=== PATIENT | male | born 1995 | race Caucasian/White ===

== ENCOUNTER 2018-06-18 13:56 | Inpatient (IN) | payer OTHER ==
[2018-06-18 14:14] VITALS: BMI 20.2
--- NOTE | 2018-06-18 15:31 | HP ---
COWS - Scale Resting Pulse: 4= CT > 121 Sweatin=Flushed/Facial Moisture Restless Observation: 1= Difficult to Sit Still Pupil Size: 0= Normal to Room Light Bone or Joint Aches: 2= Severe Diffuse Aches Runny Nose/ Eye Tearin= Runny Nose/Eyes GI Upset > 30mins: 2= Nausea/Diarrhea Tremor Observation: 2= Slight Tremor Visible Yawning Observation: 2= >3x During Session Anxiety or Irritability: 2=Irritable/Anxious Goose Flesh Skin: 3=Piloerection COWS Score: 22 CIWA Score - Admission Criteria OASAS Guidelines: Admission for Medically Managed Detox: Requires at least one of the followin. CIWA greater than 12 2. Seizures within the past 24 hours 3. Delirium tremens within the past 24 hours 4. Hallucinations within the past 24 hours 5. Acute intervention needed for co occurring medical disorder 6. Acute intervention needed for co occurring psychiatric disorder 7. Severe withdrawal that cannot be handled at a lower level of care (continued vomiting, continued diarrhea, abnormal vital signs) requiring intravenous medication and/or fluids 8. Admission ROS BHS - HPI Chief Complaint: I need to go to detox and get the help I need. I was going through withdrawal and wound up at [facility] for treatment. I am here now for detox treatment. Allergies/Adverse Reactions: Allergies Allergy/AdvReac Type Severity Reaction Status Date / Time haloperidol [From Haldol] Allergy Verified 06/18/18 15:17 History of Present Illness: Pt is a 22yr old male with a history of heroin dependence seeking detox for treatment. Pt also states he has a h/o dystonia for several years after taking too many sedative pills from his [facility] medicine cabinet in the past. The only thing that helps his dystonia when it flares up is benadryl and cogentin. Exam Limitations: No Limitations - Ebola screening Have you traveled outside of the country in the last 21 days: No Have you had contact with anyone from an Ebola affected area: No Have you been sick,other than usual withdrawal symptoms: No Do you have a fever: No - Review of Systems Constitutional: Chills, Diaphoresis, Loss of Appetite, Night Sweats, Changes in sleep EENT: reports: Tearing, Nose Congestion Respiratory: reports: No Symptoms reported Cardiac: reports: No Symptoms Reported GI: reports: Diarrhea, Poor Appetite, Poor Fluid Intake, Indigestion : reports: No Symptoms Reported Musculoskeletal: reports: Back Pain Integumentary: reports: Flushing, Sweating Neuro: reports: Tingling, Tremors Endocrine: reports: Excessive Sweating, Flushing, Intolerance to Cold, Intolerance to Heat Hematology: reports: No Symptoms Reported Psychiatric: reports: Judgement Intact, Mood/Affect Appropiate, Orientated x3, Agitated, Anxious Other Systems: Reviewed and Negative Patient History - Patient Medical History Hx Anemia: No Hx Asthma: No Hx Chronic Obstructive Pulmonary Disease (COPD): No Hx Cancer: No Hx Cardiac Disorders: No Hx Congestive Heart Failure: No Hx Hypertension: No Hx Hypercholesterolemia: No Hx Pacemaker: No HX Cerebrovascular Accident: No Hx Seizures: No Hx Dementia: No Hx Diabetes: No Hx Gastrointestinal Disorders: No Hx Liver Disease: No Hx Genitourinary Disorders: No Hx Sexually Transmitted Disorders: No Hx Renal Disease (ESRD): No Hx Thyroid Disease: No Hx Human Immunodeficiency Virus (HIV): No (negative) Hx Hepatitis C: No (negative) Hx Depression: No Hx Suicide Attempt: No Hx Bipolar Disorder: No Hx Schizophrenia: No Other Medical History: dytonia and cogentin helps with flare up - Patient Surgical History Past Surgical History: No - PPD History Previous Implant?: Yes Documented Results: Negative w/o proof Implanted On Prior [facility] Admission?: No PPD to be Administered?: Yes - Reproductive History Patient is a Female of Child Bearing Age (11 -55 yrs old): No - Smoking Cessation Smoking history: Current every day smoker Have you smoked in the past 12 months: Yes Aproximately how many cigarettes per day: 20 Hx Chewing Tobacco Use: Yes Initiated information on smoking cessation: Yes 'Breaking Loose' booklet given: 06/18/18 - Substance & Tx. History Hx Alcohol Use: No Hx Substance Use: Yes Substance Use Type: Heroin Hx Substance Use Treatment: Yes (last detox [facility] a year ago incomplete) - Substances Abused Heroin Route: Injection Frequency: Daily Amount used: 10-15 BAGS Age of first use: 17 Date of Last Use: 06/16/18 Family Disease History - Family Disease History Family History: Denies Admission Physical Exam BHS - Vital Signs Vital Signs: Vital Signs - 24 hr 06/18/18 14:12 Temperature 97.9 F Pulse Rate 122 H Respiratory 18 Rate Blood Pressure 117/66 - Physical General Appearance: Yes: Disheveled, Moderate Distress, Thin, Tremorous, Irritable, Sweating, Anxious HEENTM: Yes: Normal Voice, Nasal Congestion, Rhinorrhea Respiratory: Yes: Lungs Clear, Normal Breath Sounds, No Respiratory Distress Neck: Yes: No masses,lesions,Nodules Breast: Yes: Within Normal Limits, Breasts Symetrical Cardiology: Yes: Regular Rhythm, Regular Rate, S1, S2, Tachycardia Abdominal: Yes: Normal Bowel Sounds, Non Tender, Flat Genitourinary: Yes: Within Normal Limits Back: Yes: Normal Inspection Musculoskeletal: Yes: full range of Motion, Back pain Extremities: Yes: Normal Inspection, Non-Tender, Tremors Neurological: Yes: Fully Oriented, Alert, Normal Response Integumentary: Yes: Normal Color, Track [place] Lymphatic: Yes: Within Normal Limits - Diagnostic (1) Opioid dependence with withdrawal Current Visit: Yes Status: Chronic (2) Nicotine dependence Current Visit: Yes Status: Chronic Qualifiers: Nicotine product type: cigarettes Substance use status: uncomplicated Qualified Code(s): F17.210 - Nicotine dependence, cigarettes, uncomplicated (3) Dystonia, unspecified Current Visit: Yes Status: Chronic Cleared for Admission [facility] - Detox or Rehab [facility] Level of Care: Medically Managed Detox Regimen/Protocol: Methadone [facility] Breath Alcohol Content Breath Alcohol Content: 0 Urine Drug Screen - Results Drug Screen Negative: No Urine Drug Screen Results: OPI-Opiates, BZO-Benzodiazepines, BUP-Suboxone
[2018-06-18] MEDS ORDERED: MAGNESIUM CITRATE 300 ML BOTTLE PO PRN (15:42)
[2018-06-18] MEDS ORDERED: MAG HYDROX/AL HYDROX/SIMETH 30 ML UNIT-DOSE CUP PO PRN (15:42)
[2018-06-18] MEDS ORDERED: NICOTINE POLACRILEX 4 MG GUM BC PRN (15:42)
[2018-06-18] MEDS ORDERED: ACETAMINOPHEN 325 MG TABLET (FP) PO PRN (15:42)
[2018-06-18] MEDS ORDERED: MAGNESIUM HYDROX 2400MG/30ML ORAL SUSPENSION 30 ML CUP PO PRN (15:42)
[2018-06-18] MEDS ORDERED: hydrOXYzine PAMOATE 50 MG CAPSULE (FP) PO PRN (15:42)
[2018-06-18] MEDS ORDERED: LOPERAMIDE HCL 2 MG CAPSULE PO PRN (15:42)
[2018-06-18] MEDS ORDERED: P-EPHED 60MG/TRIPROLIDI 2.5MG TABLET PO PRN (15:42)
[2018-06-18] MEDS ORDERED: guaiFENesin/D-METHORPHAN HB 10 ML UNIT-DOSE CUPS PO PRN (15:42)
[2018-06-18] MEDS ORDERED: MENTHOL/PHENOL 1 EACH UD MM PRN (15:42)
[2018-06-18] MEDS ORDERED: IBUPROFEN 400 MG TABLET (FP) PO PRN (15:42)
[2018-06-18] MEDS ORDERED: METHADONE HCL 10 MG TABLET (FOR DETOX USE ONLY) PO ONE ×2 (16:30→23:00)
[2018-06-18] MEDS: diazePAM 5 MG TABLET PO PRN ×2 (17:34→22:19)
[2018-06-18] MEDS: diphenhydrAMINE HCL 25 MG CAPSULE (FP) PO PRN (17:41)
[2018-06-18] MEDS ORDERED: MELATONIN 5 MG TABLETS PO PRN (22:00)
[2018-06-18] MEDS ORDERED: cloNIDine HCL 0.1 MG TABLET PO SCH (22:00)
[2018-06-18] MEDS: THIAMINE HCL 100 MG TABLET (FP) PO SCH (22:19)
[2018-06-19] MEDS: diazePAM 5 MG TABLET PO PRN ×4 (06:31→19:18)
[2018-06-19] MEDS: diphenhydrAMINE HCL 25 MG CAPSULE (FP) PO PRN ×4 (08:30→22:19)
[2018-06-19] MEDS ORDERED: hydrOXYzine PAMOATE 50 MG CAPSULE (FP) PO PRN ×2 (09:27→10:36)
[2018-06-19] MEDS ORDERED: cloNIDine HCL 0.1 MG TABLET PO SCH (09:30)
[2018-06-19] MEDS ORDERED: METHADONE HCL 10 MG TABLET (FOR DETOX USE ONLY) PO ONE (10:00)
--- NOTE | 2018-06-19 10:25 | PN ---
S CIWA - CIWA Score Nausea/Vomitin-Mild Nausea/No Vomiting Muscle Tremors: 4-Moderate,w/Arms Extend Anxiety: 4-Mod. Anxious/Guarded Agitation: 2 Paroxysmal Sweats: 2 Orientation: 0-Oriented Tacttile Disturbances: 0-None Auditory Disturbances: 0-None Visual Disturbances: 0-None Headache: 0-None Present CIWA-Ar Total Score: 13 BHS Progress Note (SOAP) Subjective: Pt states he is feeling very anxious and is in withdrawal-would like to have increased dose of benadryl and clonidine. Pt is on methadone detox protocol Vital Signs - 24 hr 06/18/18 06/18/18 06/18/18 14:12 18:39 22:00 Temperature 97.9 F 98 F 98.4 F Pulse Rate 122 H 112 H 86 Respiratory 18 18 18 Rate Blood Pressure 117/66 121/72 116/61 06/19/18 06/19/18 06/19/18 00:30 03:30 06:56 Temperature Pulse Rate 68 Respiratory 17 16 18 Rate Blood Pressure 135/67 06/19/18 09:47 Temperature 98.4 F Pulse Rate 61 Respiratory 18 Rate Blood Pressure 129/66 a/p: OUD: day continue methadone detox protocol- increased clonidine/benadryl dose
[2018-06-19 10:43] LABS: URINE APPEARANCE CLEAR; URINE BILIRUBIN NEGATIVE (<2.0 mg/dL); URINE COLOR YELLOW; URINE GLUCOSE (UA) NEGATIVE (NEGATIVE); URINE KETONE NEGATIVE (NEGATIVE); URINE LEUK ESTERASE NEGATIVE (NEGATIVE); URINE NITRITE NEGATIVE (NEGATIVE); URINE PROTEIN NEGATIVE (NEGATIVE); URINE UROBILINOGEN NEGATIVE mg/dL (0.2-1.0)
[2018-06-19] MEDS: PRENATAL VITAMINS W/ FOLIC ACID TABLET (FP) PO SCH (10:44)
[2018-06-19] MEDS: NICOTINE 21 MG/24 HOURS TOPICAL PATCH TD SCH (10:47)
[2018-06-19 10:52] LABS: HEMATOCRIT 41.6 % (35.4-49); MCH 27.8 pg (25.7-33.7); MCHC 33.6 g/dl (32.0-35.9); MEAN CELL VOLUME 82.8 fl (80-96); PLATELET COUNT 195 K/MM3 (134-434); RBC 5.02 M/mm3 (4.00-5.60); RDW 14.1 % (11.9-15.9); WHITE BLOOD COUNT 8.9 K/mm3 (4.0-10.0)
[2018-06-19 10:53] LABS: ALBUMIN 3.9 g/dl (3.4-5.0); ALK PHOS 75 U/L (45-117); ANION GAP 10 MMOL/L (8-16); BILIRUBIN,TOTAL 0.9 mg/dL (0.2-1); BLOOD UREA NITROGEN 10 mg/dL (7-18); CALCIUM 8.8 mg/dL (8.5-10.1); CHLORIDE 103 mmol/L (98-107); CO2 24 mmol/L (21-32); CREATININE 0.8 mg/dL (0.55-1.3); GLUCOSE,RANDOM 118 mg/dL (74-106); POTASSIUM 4.1 mmol/L (3.5-5.1); SGOT/AST 41 U/L (15-37); SGPT/ALT 27 U/L (13-61); SODIUM 136 mmol/L (136-145); TOT PROT 7.2 g/dl (6.4-8.2)
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
[2018-06-19] MEDS: THIAMINE HCL 100 MG TABLET (FP) PO SCH (22:18)
[2018-06-19] MEDS: cloNIDine HCL 0.1 MG TABLET PO PRN (22:20)
[2018-06-20] MEDS: diazePAM 5 MG TABLET PO PRN ×4 (02:20→22:35)
[2018-06-20] MEDS ORDERED: ONDANSETRON *ODT* 4 MG TABLET SL ONE (09:57)
--- NOTE | 2018-06-20 09:57 | PN ---
BHS COWS - Scale Resting Pulse: 1= RI 81-100 Sweatin= Chills/Flushing Restless Observation: 1= Difficult to Sit Still Pupil Size: 1= Pupils >than Normal Bone or Joint Aches: 1= Mild Discomfort Runny Nose/ Eye Tearin= Nasal Congestion GI Upset > 30mins: 2= Nausea/Diarrhea Tremor Observation of Outstretched Hands: 1= Tremor [place], Not Seen Yawning Observation: 1= 1-2x During Session Anxiety or Irritability: 1=Feels Anxious/Irritable Goose Flesh Skin: 0=Smooth Skin COWS Score: 11 BHS Progress Note (SOAP) Subjective: restlessness tremor sweat doing well with clonidine social with peers in day room Objective: 06/20/18 09:58 Vital Signs Temperature 97.9 F 06/20/18 06:00 Pulse Rate 70 06/20/18 06:00 Respiratory Rate 18 06/20/18 06:00 Blood Pressure 103/50 L 06/20/18 06:00 O2 Sat by Pulse Oximetry (%) Laboratory Last Values WBC 8.9 K/mm3 (4.0-10.0) 06/19/18 07:40 RBC 5.02 M/mm3 (4.00-5.60) 06/19/18 07:40 Hgb 14.0 GM/dL (11.7-16.9) 06/19/18 07:40 Hct 41.6 % (35.4-49) 06/19/18 07:40 MCV 82.8 fl (80-96) 06/19/18 07:40 MCH 27.8 pg (25.7-33.7) 06/19/18 07:40 MCHC 33.6 g/dl (32.0-35.9) 06/19/18 07:40 RDW 14.1 % (11.9-15.9) 06/19/18 07:40 Plt Count 195 K/MM3 (134-434) 06/19/18 07:40 MPV 11.0 fl (7.5-11.1) 06/19/18 07:40 Sodium 136 mmol/L (136-145) 06/19/18 07:40 Potassium 4.1 mmol/L (3.5-5.1) 06/19/18 07:40 Chloride 103 mmol/L (98-107) 06/19/18 07:40 Carbon Dioxide 24 mmol/L (21-32) 06/19/18 07:40 Anion Gap 10 MMOL/L (8-16) 06/19/18 07:40 BUN 10 mg/dL (7-18) 06/19/18 07:40 Creatinine 0.8 mg/dL (0.55-1.3) 06/19/18 07:40 Creat Clearance w eGFR > 60 (>60) 06/19/18 07:40 Random Glucose 118 mg/dL (74-106) H 06/19/18 07:40 Calcium 8.8 mg/dL (8.5-10.1) 06/19/18 07:40 Total Bilirubin 0.9 mg/dL (0.2-1) 06/19/18 07:40 AST 41 U/L (15-37) H 06/19/18 07:40 ALT 27 U/L (13-61) 06/19/18 07:40 Alkaline Phosphatase 75 U/L (45-117) 06/19/18 07:40 Total Protein 7.2 g/dl (6.4-8.2) 06/19/18 07:40 Albumin 3.9 g/dl (3.4-5.0) 06/19/18 07:40 Urine Color Yellow 06/19/18 07:40 Urine Appearance Clear 06/19/18 07:40 Urine pH 6.0 (5.0-8.0) 06/19/18 07:40 Ur Specific [place] 1.013 (1.010-1.035) 06/19/18 07:40 Urine Protein Negative (NEGATIVE) 06/19/18 07:40 Urine Glucose (UA) Negative (NEGATIVE) 06/19/18 07:40 Urine Ketones Negative (NEGATIVE) 06/19/18 07:40 Urine Blood Negative (NEGATIVE) 06/19/18 07:40 Urine Nitrite Negative (NEGATIVE) 06/19/18 07:40 Urine Bilirubin Negative (<2.0 mg/dL) 06/19/18 07:40 Urine Urobilinogen Negative mg/dL (0.2-1.0) 06/19/18 07:40 Ur Leukocyte Esterase Negative (NEGATIVE) 06/19/18 07:40 lab noted Assessment: 06/20/18 09:59 opiate withdrawal sx Plan: continue opiate detox
[2018-06-20] MEDS ORDERED: METHADONE HCL 5 MG TABLET (FOR DETOX USE ONLY) PO ONE (10:00)
[2018-06-20] MEDS: PRENATAL VITAMINS W/ FOLIC ACID TABLET (FP) PO SCH (10:23)
[2018-06-20] MEDS: NICOTINE 21 MG/24 HOURS TOPICAL PATCH TD SCH (10:24)
[2018-06-20] MEDS: diphenhydrAMINE HCL 25 MG CAPSULE (FP) PO PRN ×2 (10:26→18:49)
--- NOTE | 2018-06-20 12:35 | EKG ---
Test Reason : Blood Pressure : / mmHG Vent. Rate : 086 BPM Atrial Rate : 086 BPM P-R Int : 112 ms QRS Dur : 102 ms QT Int : 364 ms P-R-T Axes : 038 095 067 degrees QTc Int : 435 ms NORMAL SINUS RHYTHM RIGHTWARD AXIS BORDERLINE ECG NO PREVIOUS ECGS AVAILABLE Confirmed by GYPSY PEARSON MD ([id number]) on 06/20/2018 12:35:36 PM Referred By: Confirmed By:GYPSY PEARSON MD
[2018-06-20] MEDS: cloNIDine HCL 0.1 MG TABLET PO PRN (22:35)
[2018-06-20] MEDS: THIAMINE HCL 100 MG TABLET (FP) PO SCH (22:35)
[2018-06-21] MEDS ORDERED: METHADONE HCL 5 MG TABLET (FOR DETOX USE ONLY) PO ONE (10:00)
[2018-06-21] MEDS: NICOTINE 21 MG/24 HOURS TOPICAL PATCH TD SCH (10:25)
[2018-06-21] MEDS: PRENATAL VITAMINS W/ FOLIC ACID TABLET (FP) PO SCH (10:25)
[2018-06-21] MEDS: diazePAM 5 MG TABLET PO PRN ×2 (10:25→14:51)
--- NOTE | 2018-06-21 10:33 | PN ---
[facility] Progress Note Note: PATIENT CONTINUES WITH DETOX REGIMEN. C/O MILD INTERMITTENT ACHES TO KNEE JOINTS BUT FEELS BETTER. DENIES H/A, ANXIETY/RESTLESSNESS, N/V/D AND SWEATS. Vital Signs Temperature 98.2 F 06/21/18 09:02 Pulse Rate 72 06/21/18 09:02 Respiratory Rate 18 06/21/18 09:02 Blood Pressure 127/60 06/21/18 09:02 O2 Sat by Pulse Oximetry (%) Laboratory Tests 06/19/18 06/19/18 06/19/18 07:40 07:40 07:40 WBC 8.9 RBC 5.02 Hgb 14.0 Hct 41.6 MCV 82.8 MCH 27.8 MCHC 33.6 RDW 14.1 Plt Count 195 MPV 11.0 Sodium 136 Potassium 4.1 Chloride 103 Carbon Dioxide 24 Anion Gap 10 BUN 10 Creatinine 0.8 Creat Clearance w eGFR > 60 Random Glucose 118 H Calcium 8.8 Total Bilirubin 0.9 AST 41 H ALT 27 Alkaline Phosphatase 75 Total Protein 7.2 Albumin 3.9 Urine Color Urine Appearance Urine pH Ur Specific [place] Urine Protein Urine Glucose (UA) Urine Ketones Urine Blood Urine Nitrite Urine Bilirubin Urine Urobilinogen Ur Leukocyte Esterase RPR Titer Nonreactive 06/19/18 07:40 WBC RBC Hgb Hct MCV MCH MCHC RDW Plt Count MPV Sodium Potassium Chloride Carbon Dioxide Anion Gap BUN Creatinine Creat Clearance w eGFR Random Glucose Calcium Total Bilirubin AST ALT Alkaline Phosphatase Total Protein Albumin Urine Color Yellow Urine Appearance Clear Urine pH 6.0 Ur Specific [place] 1.013 Urine Protein Negative Urine Glucose (UA) Negative Urine Ketones Negative Urine Blood Negative Urine Nitrite Negative Urine Bilirubin Negative Urine Urobilinogen Negative Ur Leukocyte Esterase Negative RPR Titer PE: ALERT AND ORIENTED X 3 SKIN WARM AND DRY EXT FULL ROM, KNEES WITHOUT SWELLING OR REDNESS, AMB AD FELISA A/P WITHDRAWAL SX CONTINUE DETOX ENCOURAGE ORAL FLUIDS CONTINUE TO MONITOR CLINICALLY
[2018-06-21] MEDS: diphenhydrAMINE HCL 25 MG CAPSULE (FP) PO PRN ×2 (11:22→22:17)
[2018-06-21] MEDS: cloNIDine HCL 0.1 MG TABLET PO PRN (22:16)
[2018-06-21] MEDS: THIAMINE HCL 100 MG TABLET (FP) PO SCH (22:16)
[2018-06-22] MEDS ORDERED: METHADONE HCL 10 MG TABLET (FOR DETOX USE ONLY) PO ONE (10:00)
--- NOTE | 2018-06-22 10:00 | PN ---
[facility] Progress Note (SOAP) Subjective: healing bruise to my forehead i need a little ointment sweats teary eyes Objective: 06/22/18 09:52 Vital Signs Temperature 98.1 F 06/22/18 09:21 Pulse Rate 73 06/22/18 09:21 Respiratory Rate 16 06/22/18 09:21 Blood Pressure 116/59 L 06/22/18 09:21 O2 Sat by Pulse Oximetry (%) aaox3 ambulating no acute distress Assessment: 06/22/18 10:10 mild withdrawal sx Plan: continue detox increase fluids bacitracin ointment ordered d/c in am
[2018-06-22] MEDS: NICOTINE 21 MG/24 HOURS TOPICAL PATCH TD SCH (10:21)
[2018-06-22] MEDS: PRENATAL VITAMINS W/ FOLIC ACID TABLET (FP) PO SCH (10:21)
[2018-06-22] MEDS: diphenhydrAMINE HCL 25 MG CAPSULE (FP) PO PRN ×3 (10:23→23:33)
[2018-06-22] MEDS: BACITRACIN 0.9 GM PACKET TP SCH (10:24)
[2018-06-22] MEDS: THIAMINE HCL 100 MG TABLET (FP) PO SCH (22:16)
[2018-06-22] MEDS: cloNIDine HCL 0.1 MG TABLET PO PRN (22:17)
[2018-06-23] MEDS ORDERED: METHADONE HCL 5 MG TABLET (FOR DETOX USE ONLY) PO ONE (06:00)
[2018-06-23 09:12] VITALS: BP 117/87; PULSE 84; TEMP 98.1
--- NOTE | 2018-06-23 09:58 | PN ---
BHS Progress Note (SOAP) Subjective: feeling better Objective: 06/23/18 09:56 Vital Signs Temperature 98.1 F 06/23/18 09:12 Pulse Rate 84 06/23/18 09:12 Respiratory Rate 18 06/23/18 09:12 Blood Pressure 117/87 06/23/18 09:12 O2 Sat by Pulse Oximetry (%) Laboratory Tests 06/19/18 06/19/18 06/19/18 07:40 07:40 07:40 WBC 8.9 RBC 5.02 Hgb 14.0 Hct 41.6 MCV 82.8 MCH 27.8 MCHC 33.6 RDW 14.1 Plt Count 195 MPV 11.0 Sodium 136 Potassium 4.1 Chloride 103 Carbon Dioxide 24 Anion Gap 10 BUN 10 Creatinine 0.8 Creat Clearance w eGFR > 60 Random Glucose 118 H Calcium 8.8 Total Bilirubin 0.9 AST 41 H ALT 27 Alkaline Phosphatase 75 Total Protein 7.2 Albumin 3.9 Urine Color Urine Appearance Urine pH Ur Specific [place] Urine Protein Urine Glucose (UA) Urine Ketones Urine Blood Urine Nitrite Urine Bilirubin Urine Urobilinogen Ur Leukocyte Esterase RPR Titer Nonreactive 06/19/18 07:40 WBC RBC Hgb Hct MCV MCH MCHC RDW Plt Count MPV Sodium Potassium Chloride Carbon Dioxide Anion Gap BUN Creatinine Creat Clearance w eGFR Random Glucose Calcium Total Bilirubin AST ALT Alkaline Phosphatase Total Protein Albumin Urine Color Yellow Urine Appearance Clear Urine pH 6.0 Ur Specific [place] 1.013 Urine Protein Negative Urine Glucose (UA) Negative Urine Ketones Negative Urine Blood Negative Urine Nitrite Negative Urine Bilirubin Negative Urine Urobilinogen Negative Ur Leukocyte Esterase Negative RPR Titer pt aox3 in nad ambulating Assessment: 06/23/18 09:57 detox completed Plan: d/c today [facility] increase fluids
[2018-06-23] MEDS: PRENATAL VITAMINS W/ FOLIC ACID TABLET (FP) PO SCH (10:01)
--- NOTE | 2018-06-23 10:01 | DS ---
[facility] Detox Discharge Summary Admission Date: 06/18/18 Discharge Date: 06/23/18 - History Present History: Opioid Dependence, Sedative Dependence - Physical Exam Results Vital Signs: Vital Signs Temperature 98.1 F 06/23/18 09:12 Pulse Rate 84 06/23/18 09:12 Respiratory Rate 18 06/23/18 09:12 Blood Pressure 117/87 06/23/18 09:12 O2 Sat by Pulse Oximetry (%) - Treatment Hospital Course: Detox Protocol Followed, Detoxed Safely, Responded well, Discharged Condition Good - Medication Discharge Medications: Ambulatory Orders NK [No Known Home Medication] 06/18/18 - Diagnosis (1) Opioid dependence with withdrawal Current Visit: Yes Status: Chronic (2) Benzodiazepine dependence Current Visit: Yes Status: Chronic (3) Nicotine dependence Current Visit: Yes Status: Chronic Qualifiers: Nicotine product type: cigarettes Substance use status: uncomplicated Qualified Code(s): F17.210 - Nicotine dependence, cigarettes, uncomplicated (4) Tourette syndrome Current Visit: Yes Status: Chronic - AMA Did Patient Leave Against Medical Advice: No
[2018-06-23] MEDS: diphenhydrAMINE HCL 25 MG CAPSULE (FP) PO PRN (10:02)
[2018-06-23] MEDS: NICOTINE 21 MG/24 HOURS TOPICAL PATCH TD SCH (10:02)
[2018-06-23] MEDS: BACITRACIN 0.9 GM PACKET TP SCH (10:03)
== END 2018-06-23 11:19 | disposition home or self-care (01) | DRG 773 ==
LOC: YASAS 13:56 → Y6N 16:02
PROC: HZ2ZZZZ Detoxification Services for Substance Abuse Treatment (ICD-10-PCS; principal; 2018-06-18)
DX: F11.23 Opioid dependence with withdrawal (principal); F13.230 Sedative, hypnotic or anxiolytic dependence with withdrawal, uncomplicated; F17.210 Nicotine dependence, cigarettes, uncomplicated; F95.2 Tourette's disorder; F19.24 Other psychoactive substance dependence with psychoactive substance-induced mood disorder; G24.9 Dystonia, unspecified; G47.00 Insomnia, unspecified; R00.0 Tachycardia, unspecified
CPT/HCPCS: 36415; 80053; 81003; 85027; 86593; 93005; 93010; J0735; Q0162